=== PATIENT | male | born 1980 | race Caucasian/White ===

== ENCOUNTER → 2023-09-13 09:10 | Outpatient (REF) | payer OTHER, SELFPAY ==
[2023-09-13 10:09] LABS: % Basophils 1.4 % (0-2); % Eosinophils 7.8 % (0-6); % Immature Granulocytes 0.6 % (0-0.5); % Lymphocytes 28.6 % (20.5-51.1); % Monocytes 6.8 % (1.7-9.3); % Neutrophils 54.8 % (42.2-75.2); Absolute Basophils 0.1 10^3/uL (0-0.2); Absolute Eosinophils 0.6 10^3/uL (0-0.7); Absolute Monocytes 0.5 10^3/uL (0.1-0.6); Absolute Neutrophils 3.8 10^3/uL (1.4-6.5); Hematocrit 41.2 % (39.0-52.0); Hemoglobin 14.3 g/dL (13.0-18.0); Mean Corp Hgb Conc. 34.7 g/dL (33.0-37.0); Mean Corpuscular Hgb 28.7 pg (27.0-31.0); Mean Corpuscular Volume 82.6 fL (80.0-94.0); Mean Platelet Volume 9.1 fL (7.4-10.4); Nucleated Red Blood Cells % 0 % (-); Platelet Count 337 10^3/uL (130-400); Red Blood Cell Count 4.99 10^6/uL (4.70-6.10); Red Cell Dist. Width 12.6 % (11.5-14.5); Urine Albumin Negative (Neg - Trace); Urine Bilirubin Negative (Negative); Urine Character Clear (Clear); Urine Color Yellow; Urine Glucose Negative (Negative); Urine Ketone Negative (Negative); Urine Leukocyte Negative (Negative); Urine Nitrite Negative (Negative); Urine Occult Blood Negative (Negative); Urine Specific Gravity 1.015 (<1.030); Urine Urobilinogen Negative (Neg - 1+)
[2023-09-13 10:45] LABS: ALT (SGPT) 23 U/L (0-50); AST (SGOT) 25 U/L (17-59); Albumin 4.6 g/dl (3.5-5.0); Alkaline Phosphatase 91 U/L (38-126); Blood Urea Nitrogen 14 mg/dl (9-20); Calcium 9.6 mg/dl (8.4-10.2); Carbon Dioxide 26 mmol/L (22-30); Chloride 106 mmol/L (98-107); Glucose 96 mg/dl (70-99); HDL Cholesterol 48 mg/dl; LDL Cholesterol, Calculated 154 mg/dl; Potassium 4.6 mmol/L (3.5-5.1); Sodium 140 mmol/L (135-145); Total Bilirubin 0.6 mg/dl (0.2-1.3); Total Cholesterol 226 mg/dl (50-199); Total Protein 7.5 g/dl (6.3-8.2); Triglyceride 123 mg/dl (10-149); Very Low Density Lipoprotein 24 mg/dl (0-30); eGFR > 60.00
[2023-09-13 11:03] LABS: Vitamin D, 25-OH*** < 12.8 ng/mL (30-80)
[2023-09-13 11:04] LABS: Glycohemoglobin (HgbA1c) 5.3 % (4.0-5.6)
[2023-09-13 11:16] LABS: TSH Reflex To Free T4 1.69 uIU/ml (0.47-4.68)
== END ==
LOC: CLINIC 09:10
PROVIDERS: ATTENDING PHYSICIAN Nurse Practitioner Acute Care
DX: Z12.11 Encounter for screening for malignant neoplasm of colon (principal); Z00.00 Encounter for general adult medical examination without abnormal findings
CPT/HCPCS: 36415; 80053; 80061; 81003; 82306; 83036; 84443; 85025

== ENCOUNTER 2023-12-01 20:46 | Emergency (ER) | payer SELFPAY ==
[2023-12-01 20:51] VITALS: BP 130/76
--- NOTE | 2023-12-01 21:14 | ED.GENMED ---
History of Present Illness
General
Chief Complaint: Cold/Flu/URI Symptoms
Source: patient
Exam Limitations: none
Time Seen by Provider: 12/01/23 21:05
History of Present Illness
History of Present Illness:
See MDM
Past History
Past History
ED Past Medical History: None
ED Past Surgical History: None
Social History
Tobacco: Non-smoker
Personal:
Living: with family
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
Phy Exam
Physical Exam
Physical Exam:
See MDM
Sepsis
Sepsis Screening
Sepsis Assessment: Sepsis Ruled Out
Sepsis Screen
Sepsis Screen: Sepsis Ruled Out
Date: 12/01/23
Time: 22:25
Course
Orders/Labs/Results
Orders:
Orders
12/01/23 21:12
0.9% Sodium Chloride 1000 ml [Nss] 1,000 ml IV BOLUS
Acetaminophen [Tylenol] 1,000 mg PO NOW STA
Dexamethasone Sod Phosphate [Decadron] 10 mg IV NOW STA
Ketorolac [Toradol] 30 mg IV NOW STA
12/01/23 21:22
COVID-19 Antigen Urgent
Source: Nasal Swab
Complete Blood Count/With Diff Urgent
Comprehensive Metabolic Panel Urgent
Influenza A+B Rapid Molecular Urgent
RAMIRO Source: Nasal Swab
Specimen Description:
Rapid Strep Group A Urgent
RAMIRO Source: Throat/Pharynx
Specimen Description:
Date Specimen was Collected: 12/01/23
Time Specimen was Collected: 21:13
12/01/23 22:20
Amoxicillin [Amoxil] 500 mg PO NOW STA
Abnormal Lab Results
12/01/23
21:22
WBC 13.8 H 10^3/uL
(4.8-10.8)
Hct 37.5 L %
(39.0-52.0)
MCV 79.4 L fL
(80.0-94.0)
Abs Immat Gran (auto) 0.1 H 10^3/uL
(0-0.05)
Absolute Neuts (auto) 11.0 H 10^3/uL
(1.4-6.5)
Absolute Monos (auto) 1.0 H 10^3/uL
(0.1-0.6)
Immature Gran % 0.8 H %
(0-0.5)
Neutrophils % 79.7 H %
(42.2-75.2)
Lymphocytes % 10.9 L %
(20.5-51.1)
Glucose 139 H mg/dl
(70-99)
12/01/23 21:22
12/01/23 21:22
Vital Signs
Initial and Last Documented VS:
Initial Vital Signs
Temp Pulse Resp BP Pulse Ox
99.3 F 106 18 130/76 97
12/01/23 20:51 12/01/23 20:51 12/01/23 20:51 12/01/23 20:51 12/01/23 20:51
Last Documented Vital Signs
Temp Pulse Resp BP Pulse Ox
99.3 F 72 16 94/64 97
12/01/23 20:51 12/01/23 22:00 12/01/23 22:00 12/01/23 22:00 12/01/23 22:00
MDM/Problems Addressed
Differential Diagnosis Includes:
HPI and MDM Narrative:
43-year-old male presenting for evaluation of flulike illness. Complains of sore throat, headache, body aches and fevers. This started earlier today. Upon further questioning, there is a similar symptoms that occurred in his family among multiple
family members. Patient is a headache in a bandlike distribution. Discussed tension headache. He complains of posterior neck pain. No meningismus. He has mild cervical lymphadenopathy. He does have an erythematous posterior pharynx but uvula
midline. There is mild exudate. Will treat symptoms with fluids, Decadron and Toradol. Will obtain COVID and flu testing in addition to rapid strep throat testing
Physical exam
General: Well appearing and non-toxic
HEENT: protecting airway. Posterior pharynx edematous and erythematous. Uvula midline. Mild exudate noted. TMs clear
Neck: supple. No meningismus. Mild posterior cervical adenopathy
CV: No evidence of cyanosis
Resp: No accessory muscle use
Abd: Non-distended
Extremities: No deformities
Neuro: alert
Psych: Normal affect
Skin: Intact
Problems Addressed including Acute and Chronic Conditions affecting care:
1. Flu like symptoms
Acuity: acute
Prognosis: stable
Details: Will give fluids and Toradol
2. Pharyngitis
Acuity: acute
Prognosis: stable
Details: Will give dose of Decadron and check strep throat
Updates
Patient found to be strep throat positive. Will start amoxicillin
Differential Diagnosis (but not limited to): Viral syndrome, strep throat, COVID, strep throat
Testing considered: CT head but he has no neurodeficits
Drug therapy (if applicable): OTC meds, please see d/c instruction regarding Rx drugs
Amount and/or Complexity of Data Reviewed
Clinical info obtained from: Patient
External data reviewed: N/A
Labs I independently reviewed (but not limited to): Strep throat positive
Radiology: N/A
Pulse Ox: not hypoxic
EKG independently reviewed: N/A
Foreign Language Instructor: N/A
Critical Care: N/A
Risk of Complication:
Social Determinants of health: Good social support
Discussed with other providers: N/A
Escalation of Care includes Admit/Obs: After being observed in the Emergency Department, pt stable for discharge.
Occasional wrong word or 'sound a like' substitutions may have occurred due to the inherent limitations of voice recognition software. Read the chart carefully and recognize, using context, where substitutions have occurred.
*Critical Care Note
Total Time (30-74mins, 75-104mins- exclusive of procedures): Not Applicable
ED Attending Note
-
Portions of this chart may have been created with voice recognition software.� Occasional wrong word or��sound alike� substitutions may have occurred due to the inherent limitations of voice recognition software.
Discharge Plan
Departure
Patient Disposition: Home (Routine Discharge)
Date of Disposition: 12/01/23
Time of Disposition: 22:21
Patient with high blood pressure during this ER visit?: No
Discharge Problem:
Strep sore throat
Instructions: Strep Throat ED
Prescriptions:
New
amoxicillin 500 mg tablet
500 mg PO BID Qty: 14 0RF
No Action
Fish Oil
1 cap PO DAILY
magnesium
1 tab PO DAILY
riboflavin (vitamin B2)
1 tab PO DAILY
Referrals:
Amanda Ivory NP [Family Provider] -
Activity Restrictions/Additional Instructions:
Please return for any worsening symptoms.
You may return at any time if you have further concerns.
Please follow up with your doctor at the first available appointment, preferably this week.
Thank you for choosing [facility].
Interventions
Interventions:
*Risk Screen - Suicide Last Done: 12/01/23 20:48
*General Assessment Last Done: 12/01/23 20:51
*Neglect/Abuse Screening Last Done: 12/01/23 20:51
ED- Fall Risk Assessment Last Done: 12/01/23 20:51
*ED COVID-19 Vaccine History Last Done: 12/01/23 20:51
ED- Pulmonary Assessment Last Done: 12/01/23 21:40
Discharge Date and Time
Print Language: ICELANDIC
[2023-12-01] MEDS: NSS 1000 IV (21:32)
[2023-12-01] MEDS: TORADOL 30 MG IV (21:32)
[2023-12-01] MEDS: TYLENOL 1000 MG PO (21:36)
[2023-12-01] MEDS: DECADRON 10 MG IV (21:36)
[2023-12-01 21:47] LABS: % Basophils 0.5 % (0-2); % Eosinophils 0.8 % (0-6); % Immature Granulocytes 0.8 % (0-0.5); % Lymphocytes 10.9 % (20.5-51.1); % Monocytes 7.3 % (1.7-9.3); % Neutrophils 79.7 % (42.2-75.2); Absolute Basophils 0.1 10^3/uL (0-0.2); Absolute Eosinophils 0.1 10^3/uL (0-0.7); Absolute Immature Granulocytes 0.1 10^3/uL (0-0.05); Absolute Lymphocytes 1.5 10^3/uL (1.2-3.4); Hematocrit 37.5 % (39.0-52.0); Hemoglobin 13.5 g/dL (13.0-18.0); Mean Corpuscular Hgb 28.6 pg (27.0-31.0); Mean Corpuscular Volume 79.4 fL (80.0-94.0); Mean Platelet Volume 8.8 fL (7.4-10.4); Nucleated Red Blood Cells % 0 % (-); Platelet Count 322 10^3/uL (130-400); Red Blood Cell Count 4.72 10^6/uL (4.70-6.10); Red Cell Dist. Width 12.4 % (11.5-14.5); White Blood Cell Count 13.8 10^3/uL (4.8-10.8)
[2023-12-01 22:00] VITALS: BP 94/64
[2023-12-01 22:02] LABS: COVID-19 Antigen Negative (Negative)
[2023-12-01 22:09] LABS: ALT (SGPT) 18 U/L (0-50); AST (SGOT) 17 U/L (17-59); Albumin 4.3 g/dl (3.5-5.0); Alkaline Phosphatase 88 U/L (38-126); Blood Urea Nitrogen 12 mg/dl (9-20); Calcium 9.5 mg/dl (8.4-10.2); Carbon Dioxide 23 mmol/L (22-30); Chloride 99 mmol/L (98-107); Glucose 139 mg/dl (70-99); Potassium 3.8 mmol/L (3.5-5.1); Sodium 136 mmol/L (135-145); Total Bilirubin 0.3 mg/dl (0.2-1.3); Total Protein 7.4 g/dl (6.3-8.2); eGFR > 60.00
[2023-12-01] MEDS: AMOXIL 500 MG PO (22:31)
[2023-12-01 22:33] VITALS: BP 102/66
== END 2023-12-01 22:50 | disposition home or self-care (01) ==
LOC: EMR 20:46
PROVIDERS: EMERGENCY PHYSICIAN Student in an Organized Health Care Education/Training Program; FAMILY PHYSICIAN Nurse Practitioner Adult Health
DX: J02.0 Streptococcal pharyngitis (principal)
CPT/HCPCS: 99283; 80053; 85025; 87070; 87502; 87811; 87880

== ENCOUNTER → 2023-12-08 10:31 | Outpatient (REF) | payer OTHER, SELFPAY ==
[2023-12-09 05:40] LABS: H. pylori Breath Test Negative (Negative)
== END ==
LOC: REG 10:31
PROVIDERS: ATTENDING PHYSICIAN Nurse Practitioner Adult Health
DX: R10.13 Epigastric pain (principal)
CPT/HCPCS: 36415; 83013

== ENCOUNTER 2024-04-07 21:28 | Emergency (ER) | payer OTHER, SELFPAY ==
[2024-04-07 21:45] VITALS: BP 130/90
[2024-04-07 22:13] LABS: % Basophils 0.6 % (0-2); % Eosinophils 3.6 % (0-6); % Immature Granulocytes 1.3 % (0-0.5); % Lymphocytes 48.6 % (20.5-51.1); % Monocytes 5.4 % (1.7-9.3); % Neutrophils 40.5 % (42.2-75.2); Absolute Basophils 0.1 10^3/uL (0-0.2); Absolute Eosinophils 0.3 10^3/uL (0-0.7); Absolute Immature Granulocytes 0.1 10^3/uL (0-0.05); Absolute Lymphocytes 4.1 10^3/uL (1.2-3.4); Absolute Monocytes 0.5 10^3/uL (0.1-0.6); Absolute Neutrophils 3.5 10^3/uL (1.4-6.5); Hematocrit 40.5 % (39.0-52.0); Mean Corp Hgb Conc. 34.6 g/dL (33.0-37.0); Mean Corpuscular Hgb 28.3 pg (27.0-31.0); Mean Platelet Volume 8.8 fL (7.4-10.4); Nucleated Red Blood Cells % 0 % (-); Platelet Count 372 10^3/uL (130-400); Red Blood Cell Count 4.94 10^6/uL (4.70-6.10); Red Cell Dist. Width 12.1 % (11.5-14.5); White Blood Cell Count 8.5 10^3/uL (4.8-10.8)
[2024-04-07 22:27] LABS: ALT (SGPT) 19 U/L (0-50); AST (SGOT) 22 U/L (17-59); Albumin 4.9 g/dl (3.5-5.0); Alkaline Phosphatase 79 U/L (38-126); Blood Urea Nitrogen 13 mg/dl (9-20); Calcium 9.2 mg/dl (8.4-10.2); Carbon Dioxide 26 mmol/L (22-30); Chloride 102 mmol/L (98-107); Glucose 124 mg/dl (70-99); Lipase 82 U/L (23-300); Potassium 3.7 mmol/L (3.5-5.1); Sodium 140 mmol/L (135-145); Total Bilirubin 0.4 mg/dl (0.2-1.3); Total Protein 8.5 g/dl (6.3-8.2); eGFR > 60.00
[2024-04-07 22:39] LABS: Troponin I < 0.012 ng/ml
[2024-04-08 00:22] VITALS: BP 121/78
[2024-04-08 00:23] VITALS: BMI 26.6
[2024-04-08 01:00] VITALS: BP 110/67
[2024-04-08 01:16] LABS: Troponin I < 0.012 ng/ml
--- NOTE | 2024-04-08 01:31 | ED.GENMED ---
History of Present Illness
General
Chief Complaint: Cardiac Symptoms
Source: patient and spouse
Exam Limitations: none
Time Seen by Provider: 04/08/24 00:31
Nursing documentation reviewed up to this point in time: agreed with
History of Present Illness
History of Present Illness:
This is a 44-year-old gentleman who has history of hypercholesterolemia, takes no medicines on a daily basis presents with somewhat abrupt onset of overall ill feeling that began this evening shortly after he retires to bed. He admits to not
feeling well, becoming nauseated, headache, lightheaded, feeling of pressure and then coldness in his eyes and nose, upper chest pressure radiating to his jaw. He got up out of bed, walked to the bathroom, splashed water on his face without relief
of symptoms. He returned to his bedroom and then notified his family to call 911.
He arrives via EMS and prehospital he was given sublingual nitroglycerin spray x 2, IV Zofran 4 mg as well as 324 mg chewable aspirin.
Patient states no significant relief with these interventions and shortly after arrival to the ED he vomited reported moderate amount of partially digested food.
He states at 1 point he was feeling somewhat confused, difficulty with his thoughts. He was concerned that he was having a stroke.
Since then he has been feeling improved but upper chest discomfort to anterior neck discomfort persists, mild in nature. He also continues with intermittent left-sided headache. He denies focal weakness nor numbness, denies dizziness, no
diaphoresis. No back pain. He denies abdominal pain, no diarrhea or constipation.
He did suffer mild URI a week and a half ago which has since resolved.
No history of similar episodes in the past.
No close contacts with similar symptoms.
Past History
Past History
ED Past Medical History: Hypercholesterolemia
ED Past Surgical History: Orthopedic (Left thumb)
Social History
Tobacco: Smoker (Rare cigarette smoking, generally socially, once per month)
Alcohol: None
Drug: None
Personal:
Living: with family
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
Family History
Family History: Negative Early CAD or CAD
Phy Exam
Physical Exam
Physical Exam:
GENERAL: 44-year-old gentleman appears his stated age, awake and alert, mildly anxious but easily communicative. is accompanying.
EYE: pupils equal and reactive. Extraocular muscles intact. Anicteric
NECK: Supple, nontender, no meningismus, no significant adenopathy. No JVD. No bruit.
ENT: posterior pharynx is clear, oral mucosa is moist. TM clear b/l, nares patent.
CARDIAC: Regular rate and rhythm. no murmur. No rub.
LUNGS: Clear breath sounds bilaterally, no acute respiratory distress, no wheezes/rales/rhonchi
ABDOMEN: Soft, nondistended, without focal tenderness, no r/g, normoactive BS.
NEUROLOGICAL: Alert and oriented x3, no focal neuro deficits.
SKIN: Warm and dry, normal color, skin intact. No rash.
MUSCULOSKELETAL: No C/C/E. peripheral pulses are full and equal b/l. No palpable tenderness.
PSYCH: Normal and appropriate interaction.
Course
Orders/Labs/Results
Orders:
Orders
04/07/24 21:31
ECG [Electrocardiogram (*1)] Urgent
Reason for Study: Chest Pain
EKG- Treatment ONCE
04/07/24 22:02
Complete Blood Count/With Diff Urgent
Comprehensive Metabolic Panel Urgent
Lipase Urgent
Troponin I Urgent
04/08/24 00:30
CT Head W/o Iv Contrast Urgent
Comment:
Reason For Exam: confussion
04/08/24 00:35
CR Chest - 2 Views Urgent
Comment:
Reason For Exam: acute chest pain, nausea
04/08/24 00:37
Troponin I Urgent
04/08/24 00:39
Electrocardiogram (*1) Urgent
Reason for Study: Chest Pain
EKG- Treatment ONCE
Abnormal Lab Results
04/07/24
22:02
Abs Immat Gran (auto) 0.1 H 10^3/uL
(0-0.05)
Absolute Lymphs (auto) 4.1 H 10^3/uL
(1.2-3.4)
Immature Gran % 1.3 H %
(0-0.5)
Neutrophils % 40.5 L %
(42.2-75.2)
Glucose 124 H mg/dl
(70-99)
Total Protein 8.5 H g/dl
(6.3-8.2)
04/07/24 22:02
04/07/24 22:02
Vital Signs
Initial and Last Documented VS:
Initial Vital Signs
Temp Pulse Resp BP Pulse Ox
98.5 F 94 20 130/90 98
04/07/24 21:45 04/07/24 21:45 04/07/24 21:45 04/07/24 21:45 04/07/24 21:45
Last Documented Vital Signs
Temp Pulse Resp BP Pulse Ox
97.8 F 75 13 110/67 99
04/08/24 00:32 04/08/24 01:15 04/08/24 01:15 04/08/24 01:00 04/08/24 01:15
MDM/Problems Addressed
Differential Diagnosis Includes:
Concern for ACS, acute gastroenteritis, GERD, orthostatic episode/near syncope. 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
He denies a sense of dizziness nor spinning�posterior circulation stroke is much less likely.
Thus far labs are unremarkable. Troponin is negative.
EKG is unremarkable/within normal limits.
Will repeat troponin and EKG. Will check CT of the head for completeness sake and continue to monitor.
Chronic conditions affecting care: Other (Hypercholesterolemia)
*Radiology
Radiology exam reviewed: preliminary read by ED provider (Chest x-ray is unremarkable.)
*Pulse Oximetry
Patient hypoxic: no
*EKG
Interpreted by ED Provider?: Yes
Interpretation: normal
Comparison EKG: no comparison EKG present
Rate: normal
Rhythm: sinus
[place]: normal axis
Interval: normal interval
QRS Pattern: normal QRS
Ischemia: no ischemia
*Sales Center Manager Interpretation
Rate: normal
Interpretation: normal
Rhythm: sinus
*Critical Care Note
Total Time (30-74mins, 75-104mins- exclusive of procedures): Not Applicable
Update Note
Update Note:
Repeat EKG is unremarkable, within normal limits and unchanged from previous. Repeat troponin remains negative.
CT of the head is unremarkable. There is note of partial opacification of right ethmoid air cells as well as left mastoid effusion. This may be related to recent URI 1 week ago.
Patient is sleeping upon reevaluation, awakens easily and once awake he is bright and alert, offering no complaints.
No further chest discomfort no headache, drinking fluids well without return of nausea nor return of other symptoms.
Will discharge to home with recommendations to limit his diet to clear liquids this morning, slowly advance as tolerated.
Will refer to PCP for recheck and will refer to our chest pain hotline as well.
ED Attending Note
-
Portions of this chart may have been created with voice recognition software.� Occasional wrong word or��sound alike� substitutions may have occurred due to the inherent limitations of voice recognition software.
Discharge Plan
Departure
Patient Disposition: Home (Routine Discharge)
Date of Disposition: 04/08/24
Time of Disposition: 03:31
Patient with high blood pressure during this ER visit?: No
Condition: Good
Discharge Problem:
Acute chest pain, Acute nausea with nonbilious vomiting, Vasovagal episode
Instructions: Chest Pain DCA Follow Up
Prescriptions:
No Action
Fish Oil
1 cap PO DAILY
magnesium
1 tab PO DAILY
riboflavin (vitamin B2)
1 tab PO DAILY
amoxicillin 500 mg tablet
500 mg PO BID Qty: 14 0RF
Referrals:
Ana Garcia MD [Family Provider] - Call in 1-3 days for appt
Interventions
Interventions:
*Risk Screen - Suicide Last Done: 04/07/24 21:45
*General Assessment Last Done: 04/08/24 00:23
*Neglect/Abuse Screening Last Done: 04/07/24 21:45
ED- Fall Risk Assessment Last Done: 04/08/24 00:24
*ED COVID-19 Vaccine History Last Done: 04/08/24 00:23
*Nursing Disposition Last Done: 04/08/24 03:40
ED- Pulmonary Assessment Last Done: 04/08/24 00:24
ED- Cardiac Assessment Last Done: 04/08/24 00:24
Discharge Date and Time
Discharge Date/Time: 04/08/24 03:40
Print Language: TURKMEN
--- NOTE | 2024-04-08 02:51 | EDRN ---
Patient is sleeping, woke him up to see how he is feeling, reports feeling better, gave water to drink, informed Dr. Ward.
== END 2024-04-08 03:40 | disposition home or self-care (01) ==
LOC: EMR 21:28
PROVIDERS: Student in an Organized Health Care Education/Training Program; EMERGENCY PHYSICIAN Emergency Medicine; FAMILY PHYSICIAN Student in an Organized Health Care Education/Training Program
DX: R07.89 Other chest pain (principal); R11.2 Nausea with vomiting, unspecified; R55 Syncope and collapse; E78.00 Pure hypercholesterolemia, unspecified; F17.210 Nicotine dependence, cigarettes, uncomplicated
CPT/HCPCS: 99284; 70450; 71046; 80053; 83690; 84484; 85025; 93005

== ENCOUNTER → 2024-04-15 10:12 | Outpatient (REF) | payer OTHER, SELFPAY ==
[2024-04-15 11:23] LABS: % Basophils 0.8 % (0-2); % Eosinophils 4.3 % (0-6); % Immature Granulocytes 1.1 % (0-0.5); % Lymphocytes 27.9 % (20.5-51.1); % Monocytes 6.4 % (1.7-9.3); % Neutrophils 59.5 % (42.2-75.2); Absolute Basophils 0.1 10^3/uL (0-0.2); Absolute Eosinophils 0.3 10^3/uL (0-0.7); Absolute Immature Granulocytes 0.1 10^3/uL (0-0.05); Absolute Lymphocytes 2.1 10^3/uL (1.2-3.4); Absolute Monocytes 0.5 10^3/uL (0.1-0.6); Absolute Neutrophils 4.4 10^3/uL (1.4-6.5); Hematocrit 42.5 % (39.0-52.0); Hemoglobin 14.7 g/dL (13.0-18.0); Mean Corp Hgb Conc. 34.6 g/dL (33.0-37.0); Mean Corpuscular Hgb 28.4 pg (27.0-31.0); Mean Corpuscular Volume 82.2 fL (80.0-94.0); Mean Platelet Volume 9.7 fL (7.4-10.4); Nucleated Red Blood Cells % 0 % (-); Platelet Count 338 10^3/uL (130-400); Red Blood Cell Count 5.17 10^6/uL (4.70-6.10); Red Cell Dist. Width 12.5 % (11.5-14.5); White Blood Cell Count 7.5 10^3/uL (4.8-10.8)
[2024-04-15 12:15] LABS: ALT (SGPT) 22 U/L (0-50); AST (SGOT) 21 U/L (17-59); Albumin 4.8 g/dl (3.5-5.0); Alkaline Phosphatase 100 U/L (38-126); Blood Urea Nitrogen 11 mg/dl (9-20); Calcium 9.5 mg/dl (8.4-10.2); Carbon Dioxide 23 mmol/L (22-30); Chloride 104 mmol/L (98-107); Glucose 105 mg/dl (70-99); HDL Cholesterol 43 mg/dl; LDL Cholesterol, Calculated 106 mg/dl; Potassium 4.3 mmol/L (3.5-5.1); Sodium 139 mmol/L (135-145); Total Bilirubin 0.5 mg/dl (0.2-1.3); Total Cholesterol 208 mg/dl (50-199); Total Protein 7.8 g/dl (6.3-8.2); Triglyceride 296 mg/dl (10-149); Very Low Density Lipoprotein 59 mg/dl (0-30); eGFR > 60.00
[2024-04-16 17:20] LABS: Vitamin D, 25-OH*** 22.5 ng/mL (30-80)
[2024-04-16 17:35] LABS: TSH Reflex To Free T4 1.57 uIU/ml (0.47-4.68)
[2024-04-16 17:54] LABS: Vitamin B12 284 pg/ml (239-931)
== END ==
LOC: CLINIC 10:12
PROVIDERS: ATTENDING PHYSICIAN Student in an Organized Health Care Education/Training Program
DX: G93.31 Postviral fatigue syndrome (principal); E78.00 Pure hypercholesterolemia, unspecified
CPT/HCPCS: 36415; 80053; 80061; 82306; 82607; 84443; 85025

== ENCOUNTER → 2024-04-22 13:12 | Outpatient (REF) | payer OTHER, SELFPAY ==
[2024-04-24 16:50] LABS: FIT-Fecal Occult Blood Interp Positive
== END ==
LOC: REG 13:12
PROVIDERS: ATTENDING PHYSICIAN Student in an Organized Health Care Education/Training Program
DX: Z12.11 Encounter for screening for malignant neoplasm of colon (principal)
CPT/HCPCS: 83520

== ENCOUNTER 2024-09-26 06:22 | Day surgery (SDC) | payer OTHER, SELFPAY | END 2024-09-26 15:22 | disposition home or self-care (01) | LOC: GI 06:22 | PROVIDERS: ATTENDING PHYSICIAN Student in an Organized Health Care Education/Training Program | DX: Z12.11 Encounter for screening for malignant neoplasm of colon (principal); K62.89 Other specified diseases of anus and rectum; R19.5 Other fecal abnormalities; K57.30 Diverticulosis of large intestine without perforation or abscess without bleeding; R10.13 Epigastric pain; D12.2 Benign neoplasm of ascending colon; D12.3 Benign neoplasm of transverse colon; K62.1 Rectal polyp; K29.50 Unspecified chronic gastritis without bleeding; K31.89 Other diseases of stomach and duodenum; Z80.0 Family history of malignant neoplasm of digestive organs | CPT/HCPCS: 45385; 45380; 43239; 88305; 88342 ==

== ENCOUNTER → 2024-10-09 16:57 | Outpatient (REF) | payer OTHER, SELFPAY | LOC: CLINIC 16:57 | PROVIDERS: ATTENDING PHYSICIAN Student in an Organized Health Care Education/Training Program | DX: R10.13 Epigastric pain (principal); Z80.0 Family history of malignant neoplasm of digestive organs | CPT/HCPCS: 74177; Q9967 ==

== ENCOUNTER → 2024-12-07 09:10 | Outpatient (REF) | payer OTHER, SELFPAY | LOC: CLINIC 09:10 | PROVIDERS: ATTENDING PHYSICIAN Nurse Practitioner Family | DX: M25.611 Stiffness of right shoulder, not elsewhere classified (principal); B96.81 Helicobacter pylori [H. pylori] as the cause of diseases classified elsewhere | CPT/HCPCS: 36415; 73030; 83013 ==

== ENCOUNTER 2025-01-28 11:50 | Outpatient (RCR) | payer OTHER, SELFPAY | END 2025-01-28 23:59 | disposition home or self-care (01) | LOC: RPT 11:50 | PROVIDERS: ATTENDING PHYSICIAN Orthopaedic Surgery; FAMILY PHYSICIAN Nurse Practitioner Adult Health | DX: M75.21 Bicipital tendinitis, right shoulder (principal); M76.52 Patellar tendinitis, left knee; M54.16 Radiculopathy, lumbar region; Z73.6 Limitation of activities due to disability | CPT/HCPCS: 97110; 97112; 97140; 97162 ==

== ENCOUNTER 2025-02-11 18:01 | Outpatient (RCR) | payer OTHER, SELFPAY | END 2025-02-11 23:59 | disposition home or self-care (01) | LOC: RPT 18:01 | PROVIDERS: ATTENDING PHYSICIAN Orthopaedic Surgery; FAMILY PHYSICIAN Nurse Practitioner Adult Health | DX: M75.21 Bicipital tendinitis, right shoulder (principal); M76.52 Patellar tendinitis, left knee; M54.16 Radiculopathy, lumbar region; Z73.6 Limitation of activities due to disability | CPT/HCPCS: 97110; 97140 ==